=== PATIENT | male | born 2005 | race Caucasian/White ===

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

== ENCOUNTER 2024-04-17 05:23 | Emergency (ER) | payer OTHER ==
[2024-04-17] MEDS ORDERED: FLUORESCEIN STRIPS 1 MG STRIP ONE (06:48)
[2024-04-17] MEDS ORDERED: PROPARACAINE 0.5% OPHTH DROPS 15 ML BTL ONE (06:48)
== END 2024-04-17 08:56 | disposition home or self-care (01) ==
LOC: EC 05:23
DX: B30.9 Viral conjunctivitis, unspecified (principal)
CPT/HCPCS: 99282